=== PATIENT | female | born 1970 | race Caucasian/White ===

== ENCOUNTER 2017-01-03 13:04 | Emergency (ER) | payer OTHER | END 2017-01-03 13:52 | disposition home or self-care (01) | LOC: ER 13:04 | DX: L02.214 Cutaneous abscess of groin (principal); L73.9 Follicular disorder, unspecified; Z88.5 Allergy status to narcotic agent; Z88.6 Allergy status to analgesic agent | CPT/HCPCS: 93926; 99284 ==

== ENCOUNTER 2017-01-04 15:19 | Emergency (ER) | payer OTHER | END 2017-01-04 17:07 | disposition home or self-care (01) | LOC: ER 15:19 | DX: R20.2 Paresthesia of skin (principal); T37.0X5A Adverse effect of sulfonamides, initial encounter; Z88.5 Allergy status to narcotic agent; Z88.8 Allergy status to other drugs, medicaments and biological substances | CPT/HCPCS: 99283 ==